=== PATIENT | female | born 1970 | race Caucasian/White ===

== ENCOUNTER 2016-12-01 12:26 | Emergency (ER) | payer BC ==
[2016-12-01 13:02] LABS: Hematocrit 37.6 % (37.0-47.0); Hemoglobin 11.9 gm/dL (12.5-16.0); Mean Cell Volume 83.7 fl (78-100); Mean Corpuscular Hemoglobin 26.5 pg (27-31); Mean Corpuscular Hgb Conc 31.6 g/dl (32-36); Mean Platelet Volume 8.8 fl (6.0-9.5); Neutrophil # 2.3 K/mm3 (1.3-6.0); Neutrophil % 44.7 % (42-75.0); Platelet Count 317 K/mm3 (150-450); Red Blood Count 4.49 M/mm3 (4.2-5.4); Red Cell Distribution Width 19.2 % (11.5-14.0); White Blood Count 5.1 K/mm3 (4.0-10.5)
--- OUTSIDE RECORDS SUMMARY | 2016-12-01 13:05 | XMS REPORT | Continuity of Care Document ---
:1970 Author Organization [employer] Address [place] [address] Care Team Providers Name Role Phone Markus Whittaker Primary Care Provider [phone] Source Comments This disclosure is being made pursuant to the [employer] program and maynot contain all information available regarding this patient.[employer] Active Allergies and Adverse Reactions Allergen Noted Date Severity Reactions Comments Codeine 06/19/2016 Low Itching Percocet 06/19/2016 Medium Nausea And Vomiting Current Medications Be aware that medications may not be up to date as of this document. Alwaysverify current medications with the patient. Prescription Sig. Disp. Refills Start Date End Date Status clonazePAM (KLONOPIN) Take 0.5 tablets 06/17/2016 Active 0.5 MG tablet by mouth 2 (two) times daily as needed. acyclovir (ZOVIRAX) Take 1 tablet by 04/21/2016 Active 400 MG tablet mouth 2 (two) times daily. PREMPRO 0.3-1.5 MG per Take 1 tablet by 04/22/2016 Active tablet mouth nightly. gabapentin (NEURONTIN) Take 1 tablet by 05/07/2016 Active 600 MG tablet mouth 3 (three) times daily. hydrOXYzine pamoate Take 1 capsule by 05/21/2016 Active (VISTARIL) 25 MG mouth every 6 capsule (six) hours as needed. mirtazapine (REMERON) Take 1 tablet by 06/17/2016 Active 30 MG tablet mouth nightly. QUEtiapine Fumarate Take 3 tablets by 06/17/2016 Active (SEROQUEL) 200 MG mouth nightly. tablet OXcarbazepine Take 2 tablets by 120 tablet 2 06/19/2016 Active (TRILEPTAL) 150 MG mouth 2 (two) tablet times daily. Start 1 nightly x 7d, increase every 7days until 2 twice daily. diazepam (VALIUM) 5 MG Take 1 tablet by 2 tablet 0 06/19/2016 Active tablet mouth 120 (one hundred twenty) minutes pre-procedure for Anxiety. Ok to repeat x1 at the time of procedure. HYDROcodone-acetaminop Take 1 tablet by 30 tablet 0 07/25/2016 Active hen (NORCO) 5-325 MG mouth nightly as per tablet needed. lamoTRIgine (LAMICTAL) Take 1 tablet by 07/09/2016 Active 100 MG tablet mouth 2 (two) times daily. 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
--- NOTE | 2016-12-01 13:09 | ERNOTE ---
ER Female HPI Date of Service: 12/01/16 Stated Complaint: BLOOD CLOT IN LEG AND VAGINAL BLEEDING Time Seen by Provider: 12/01/16 12:43 Allergies/Adverse Reactions: Allergies codeine phosphate [From Tylenol-Codeine] Adverse Reaction (Unknown, Verified 12:39) Itching oxycodone HCl [From Percocet] Adverse Reaction (Unknown, Verified 12/01/16 12:39 ) Nausea Home Medications: HOME MEDICATIONS QUEtiapine FUMARATE [Seroquel] 100 mg PO BID 06/21/14 [Last Taken Unknown] QUEtiapine FUMARATE [Seroquel] 400 mg PO HS 06/21/14 [Last Taken Unknown] clonazePAM [Klonopin] 0.5 mg PO TID PRN 06/21/14 [Last Taken Unknown] Acyclovir [Zovirax] 400 mg PO BID 12/01/16 [Last Taken Unknown] Budesonide/Formoterol Fumarate [Symbicort 160-4.5 Mcg Inhaler] 2 puff IH BID [Last Taken Unknown] Ferrous Sulfate 325 mg PO DAILY 12/01/16 [Last Taken Unknown] Gabapentin [Neurontin] 300 mg PO TID 12/01/16 [Last Taken Unknown] HYDROcodone/ACETAMINOPHEN [[place] 5-325] 1 tab PO Q46H PRN 12/01/16 [Last Taken Unknown] Mirtazapine [Remeron] 30 mg PO DAILY 12/01/16 [Last Taken Unknown] Warfarin Sodium [Coumadin] 3 mg PO DAILY 12/01/16 [Last Taken Unknown] hydrOXYzine PAMOATE [Vistaril] 25 mg PO TID 12/01/16 [Last Taken Unknown] lamoTRIgine [Lamictal] 100 mg PO DAILY 12/01/16 [Last Taken Unknown] - History of Present Illness Narrative: Pt. comes in with c/o vaginal bleeding for three days. Pt. is postmenopausal for three years and has only had this happen once before when on xeralto. Pt. was switched from xarelto to coumadin a month ago due to another DVT being found in pt. leg. Pt. has a hx of mult DVTs but is not aware of any clotting dysfunction. Pt. denies any SOB, CP, NVD, dizziness but does state that her abdomen feels full and she has fatigue. Pt. went to Dr Wright's office who she attempted to establish care with but who stated that she felt pt. was too complicated to be managed by her and was sent her without a PCP currently. Review of Systems - Review of Systems Constitutional: Present: fatigue, malaise. Absent: fever, chills, weakness EYE: Present: no symptoms reported ENT: Present: no symptoms reported. Absent: nose pain, nose congestion, nasal drainage, sore throat Respiratory: Present: no symptoms reported. Absent: shortness of breath, cough , wheezing Cardiology: Present: no symptoms reported. Absent: chest pain, palpitations, edema Gastrointestinal/Abdominal: Present: abdominal pain - diffuse aching. Absent: nausea, vomiting, diarrhea Genitourinary: Present: discharge - blood. Absent: frequency, hematuria, decreased urinary output Musculoskeletal: Present: no symptoms reported. Absent: back pain, neck pain, joint pain Skin: Present: no symptoms reported Neurological: Present: no symptoms reported. Absent: headache, dizziness/light- headedness, numbness, tingling Endocrine: Present: no symptoms reported All Other Systems: All systems neg except as marked - Patient's Past Medical History Patient History - Medical: No pertinent hx Patient History - Cardiac/Respiratory: Deep Vein Thrombosis Patient History - Cancer: No Hx of Cancer Patient History - Surgical Procedures: Cholecystectomy, Tubal Ligation Patient History - Other: None - Social History Living Situations: home Psych History: No pertinent hx Physical Exam - Physical Exam General Appearance: Present: wd/wn, alert, no apparent distress Eye Exam: Normal inspection: bilateral, PERRL: bilateral, EOMI: bilateral Ears, Nose, Throat: Present: normal ENT inspection, normal pharynx Neck: Present: normal inspection, nontender. Absent: lymphadenopathy (R), lymphadenopathy (L) Respiratory: Present: no respiratory distress, normal breath sounds, no accessory muscle use, chest nontender, lungs clear Cardiovascular/Chest: Present: regular rate, rhythm, no murmur, normal peripheral pulses Gastrointestinal/Abdominal: Present: normal bowel sounds, nondistended, soft, no organomegaly, tenderness - diffuse Back Exam: Present: normal inspection, normal range of motion, no CVA tenderness , no vertebral tenderness Extremity Exam: Present: normal inspection, non-tender, normal range of motion, no edema Neurological Exam: Present: alert, oriented, normal mood/affect, no motor/ sensory deficits Skin Exam: Present: warm/dry, pallor Pelvic Exam: Present: active bleeding, cervical motion tendernes, tender adnexa , tender uterus ED Progress - Date and Time Seen: Date and Time: 12/01/16 14:36 Pt. with decreased bleeding at this time and non life threatening hemaglobin So feel comfortable having pt. go home and follow up as an outpt. with int. med. - Results and Orders Patient's Lab Results:: I have reviewed the patient's lab results. - Vital Signs Patient's Vital Signs:: I have reviewed the patient's vital signs. Vital Signs: Vital Signs 12/01/16 12/01/16 12:34 12:52 Temperature 36.3 C L 36.4 C L Pulse Rate 95 102 H Respiratory 12 14 Rate Blood Pressure 143/89 129/85 O2 Sat by Pulse 100 97 Oximetry - CT/Ultrasound CT/Ultrasound Narrative: US pelvic IMPRESSION: 1. Endometrial stripe measurement within normal limits. 2. No focal uterine mass. 3. Small simple appearing right ovarian cyst which is probably benign. Recommend follow-up in 6-12 months to document stability, or sooner if the patient has new symptoms attributable to the right ovary. 4. Otherwise unremarkable examination. - Progress/Reassessment Chief Complaint: Genitourinary Problem Progress:: Improved Departure Clinical Impression: Abnormal uterine bleeding (AUB) - Departure Disposition: Home self-care Condition: Good Instructions: Abnormal Uterine Bleeding, Ovarian Cyst, [id number], Postmenopausal Bleeding Additional Instructions: Please follow up with engineering professor office here for follow up by calling for appointment as soon as you are able. Will call you with appointment for primary provider. Referrals: Chris Velazquez DO [Staff Physician] -
[2016-12-01 13:13] LABS: Prothrombin Time (Patient) 13.5 Seconds (9.4-11.4)
[2016-12-01 13:17] LABS: INR 1.3 INR (0.90-1.10)
[2016-12-01 13:20] LABS: Urine Bilirubin Negative (NEGATIVE); Urine Ketone Negative (NEGATIVE); Urine Nitrite Negative (NEGATIVE); Urine Protein Negative (NEGATIVE); Urine Specific Gravity <=1.005 SP.GR. (1.005-1.010); Urine Urobilinogen Normal (NORMAL)
[2016-12-01 13:25] LABS: Albumin * 3.5 gm/dl (3.4-5.0); Anion Gap 14.4 mmol/L (6.8-13.8); BUN/Creatinine Ratio 10.1 (9.0-21.6); Bilirubin, Total 0.1 mg/dL (0.0-1.1); Ca. Corrected For Albumin 8.6 mg/dL (8.4-10.2); Calcium * 8.5 mg/dL (7.9-10.9); Carbon Dioxide 26.5 mmol/L (24-32.6); Potassium 3.9 mmol/L (3.4-4.6); Total Protein 6.6 gm/dL (6.2-8.2)
[2016-12-01 13:36] LABS: Urine Appearance Clear; Urine Bacteria None Seen; Urine Blood 10 /ul (NEGATIVE); Urine Color Colorless; Urine RBC None Seen /hpf (0-5); Urine WBC None Seen /hpf (0-5)
[2016-12-01 14:41] VITALS: BP 116/78
== END 2016-12-01 15:01 | disposition home or self-care (01) ==
LOC: ER 12:26
DX: N95.0 Postmenopausal bleeding (principal); I82.509 Chronic embolism and thrombosis of unspecified deep veins of unspecified lower extremity; Z79.01 Long term (current) use of anticoagulants

== ENCOUNTER 2017-06-03 06:51 | Day surgery (SDC) | payer BC ==
[~2017-06-03 06:51] MED LIST: RINGER'S SOLUTION,LACTATED 1,000 ML IV PRN; ceFAZolin SODIUM 1 GM in DEXTROSE 5 % IN WATER 100 ML IV PRN
[2017-06-03] MEDS ORDERED: RINGER'S SOLUTION,LACTATED 1,000 ML IV ONE ×2 (07:30→09:50)
[2017-06-03] MEDS ORDERED: LIDOCAINE HCL/EPINEPHRINE 50 ML VIAL IJ ONE ×2 (08:20)
[2017-06-03] MEDS ORDERED: ceFAZolin SODIUM 1 GM VIAL IV ONE (08:20)
--- NOTE | 2017-06-03 08:56 | OR ---
Operative Report - Dictated Report Narrative: DATE OF PROCEDURE: 06/03/2017 INDICATIONS: 47-year-old female with postmenopausal bleeding due to lifelong Coumadin use secondary to recurrent VTE. PREOPERATIVE DIAGNOSIS: Recurrent postmenopausal bleeding on Coumadin therapy POSTOPERATIVE DIAGNOSIS: Same, with possible adenomyosis PROCEDURE: Diagnostic hysteroscopy, NovaSure endometrial ablation SURGEON: Josie Velazquez D.O. COLOR CHECKER: None ANESTHESIA: IV sedation with paracervical block ESTIMATED BLOOD LOSS: Minimal URINE OUTPUT: Not recorded FLUID REPLACEMENT: 400 mL SPECIMEN(S): None FINDINGS: Uterus sounded to 8 cm. Dark 1-2 mm punctate dark hemorrhagic lesions noted at the center of the fundus and at the 10 and 2 o'clock position which appeared to be just below the endometrial surface. TECHNIQUE: Patient was taken to the operating room and placed in dorsal lithotomy position after adequate IV sedation and 1 g of Ancef given intravenously. The anterior lip of the cervix was grasped with a long Allis clamp and a paracervical block was given using 1% lidocaine with epinephrine. A 5 mm hysteroscope was inserted through the cervical canal into the uterine cavity with findings as noted above. The uterus was sounded to 8 cm with a cervical length measured at 4 cm. The NovaSure device was inserted into the uterine cavity with a cavity width measurement of 2.5 cm. After cavity assessment the NovaSure device was deployed with a total ablation time of 79 seconds. The hysteroscope was reinserted into the uterine cavity showing a thorough burn of the entire cavity. All instruments were removed from the cervix and vagina. Sponge, lap, instrument, and needle count were correct x 2. The patient was transferred to postanesthesia care unit in good condition. POSTOPERATIVE CONDITION: Good
[2017-06-03] MEDS ORDERED: IBUPROFEN 800 MG TABLET PO PRN (09:07)
[2017-06-03] MEDS ORDERED: MORPHINE SULFATE 2 MG/ML DISP.SYRIN IV PRN (09:07)
[2017-06-03] MEDS ORDERED: HYDROcodone/ACETAMINOPHEN 1 EACH TABLET PO PRN (09:08)
[2017-06-03 09:54] VITALS: BP 132/85
== END 2017-06-03 06:52 | disposition home or self-care (01) ==
LOC: AMB 06:51
PROVIDERS: ATTEND Obstetrics & Gynecology
PROC: 0U5B8ZZ Destruction of Endometrium, Via Natural or Artificial Opening Endoscopic (ICD-10-PCS; principal; 2017-06-03 08:00)
DX: N95.0 Postmenopausal bleeding (principal); E07.89 Other specified disorders of thyroid; Z79.01 Long term (current) use of anticoagulants; F17.200 Nicotine dependence, unspecified, uncomplicated; Z68.28 Body mass index [BMI] 28.0-28.9, adult; Z86.711 Personal history of pulmonary embolism; Z86.718 Personal history of other venous thrombosis and embolism

== ENCOUNTER 2017-07-20 13:39 | Emergency (ER) | payer BC ==
[2017-07-20] MEDS ORDERED: HYDROmorphone HCL 1 MG/ML DISP.SYRIN IM ONE (14:39)
--- NOTE | 2017-07-20 14:48 | ERNOTE ---
Lower Extremity HPI - Narrative Date of Service: 07/20/17 - General Lower Extremities Pain: knee: right - patient fel 2 days ago Time Seen by Provider: 07/20/17 14:11 Source: patient Exam Limitations: no limitations - Immun/Allergies/Home Medications Immunizations: IMMUNIZATION HX Immunizations Up to Date Yes History of Influenza Vaccine Yes Hx Pneumococcal Vaccination No Allergies/Adverse Reactions: Allergies Allergy/AdvReac Type Severity Reaction Status Date / Time adhesive tape AdvReac Mild RASH Verified 07/20/17 13:49 codeine phosphate AdvReac Mild Itching Verified 07/20/17 13:49 [From Tylenol-Codeine] oxycodone HCl [From Percocet] AdvReac Mild N/V Verified 07/20/17 13:49 Home Medications: HOME MEDICATIONS Acyclovir [Zovirax] 400 mg PO BID 12/01/16 [Last Taken Unknown] Gabapentin [Neurontin] 300 mg PO TID 12/01/16 [Last Taken Unknown] Fluticasone/Salmeterol [Advair 500-50 Diskus] 1 puff IH BID 02/09/17 [Last Taken Unknown] Warfarin Sodium [Coumadin] 4 mg PO DAILY 02/09/17 [Last Taken 05/31/17 18:00] Albuterol Sulfate [Proair Hfa] 1 puff IH BID 05/29/17 [Last Taken Unknown] QUEtiapine FUMARATE [Seroquel] 200 mg PO QAM 05/29/17 [Last Taken Unknown] QUEtiapine FUMARATE [Seroquel] 400 mg PO HS 05/29/17 [Last Taken Unknown] HYDROcodone/ACETAMINOPHEN [[place] 5-325 mg Tablet] 1 each PO Q4H #20 tablet [Last Taken Unknown] HYDROcodone/ACETAMINOPHEN [[place] 5-325] 1 tab PO Q4H PRN #40 tab 07/20/17 [Last Taken Unknown] - History of Present Illness Narrative: 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 Occurred: just prior to arrival Location of Incident: other - street Method of Injury: Reports: fell, direct blow Reason for Fall: Reports: slipped Loss of Consciousness: Reports: no loss of consciousness Modifying Factors - (Improves): Reports: cold therapy, rest Modifying Factors - (Worsens): Reports: movement Associated Symptoms: Reports: unable to bear weight Other Injuries: Reports: none Review of Systems - Narrative Narrative: unremarkable - Review of Systems Constitutional: Present: no symptoms reported EYE: Present: no symptoms reported ENT: Present: no symptoms reported Respiratory: Present: no symptoms reported Cardiology: Present: no symptoms reported Gastrointestinal/Abdominal: Present: no symptoms reported Genitourinary: Present: no symptoms reported Musculoskeletal: Present: See HPI, joint pain, other - pain right knee Skin: Present: no symptoms reported Neurological: Present: no symptoms reported Endocrine: Present: no symptoms reported Hematologic/Lymphatic: Present: no symptoms reported Psych: Present: no symptoms reported All Other Systems: All systems neg except as marked - Narrative Narrative: unremarkable - Patient's Past Medical History Patient History - Medical: No pertinent hx Patient History - Cardiac/Respiratory: Asthma, Deep Vein Thrombosis, Other Patient History - Cancer: No Hx of Cancer Patient History - Surgical Procedures: Cholecystectomy, Tubal Ligation, Other Patient History - Other: None LMP (females 10-50): Menopausal - Family History Family History:: no untoward family reactions to anesthesia, no familial bleeding tendencies, no family history of clotting disorders, no family history of premature - Family History Mother Family History - Medical: Anxiety, Arthritis Family History - Cardiac/Respiratory: Coronary Heart Disease Family History - Cancer: No pertinent family hx Father Family History - Medical: , Diabetes Type 1 Family History - Cardiac/Respiratory: CVA/Stroke, Myocardial Infarction Family History - Cancer: No pertinent family hx - Social History Living Situations: home Abuse History: No History of abuse Psych History: No pertinent hx Does anyone smoke in the home?: Yes Smoking Status: Current every day smoker Have you smoked in the past 12 months: Yes Do you dip or chew tobacco: No Patient requests Smoking Cessation Consult: No Initiate information on Smoking Cessation: No Alcohol Use: occasionally Drug Use: marijuana - Immunizations Immunizations Up to Date: Yes Hx Pneumococcal Vaccination: No History of Influenza Vaccine: Yes Physical Exam - Physical Exam General Appearance: Present: moderate distress Head Exam: Present: normal inspection, no evidence of injury Eye Exam: Normal inspection: bilateral, PERRL: bilateral, EOMI: bilateral Ears, Nose, Throat: Present: normal ENT inspection Neck: Present: normal inspection, nontender Respiratory: Present: no respiratory distress, normal breath sounds, no accessory muscle use, chest nontender, lungs clear Cardiovascular/Chest: Present: regular rate, rhythm, no murmur, normal peripheral pulses Gastrointestinal/Abdominal: Present: normal bowel sounds, nontender, nondistended, soft, no organomegaly Back Exam: Present: normal inspection, normal range of motion, no CVA tenderness , no vertebral tenderness Extremity Exam: Present: decreased range of motion, joint swelling, other - pain worse on medial aspect of right knee, no deformity noted DTR: N=norm/NB=norm/brisk/A=abs/DD=dull/dimin/HC=hyperactive: Bicep (R): Normal , Bicep (L): Normal, Tricep (R): Normal, Tricep (L): Normal, Knee (L): Normal, Ankle (R): Normal, Ankle (L): Normal Skin Exam: Present: normal color, warm/dry Lymphatic Exam: Present: no adenopathy ED Progress - Date and Time Seen: Date and Time: 07/20/17 14:45 unchanged - Vital Signs Patient's Vital Signs:: I have reviewed the patient's vital signs. Vital Signs: Vital Signs 07/20/17 13:45 Temperature 35.8 C L Pulse Rate 97 Respiratory 13 Rate Blood Pressure 146/77 O2 Sat by Pulse 100 Oximetry - X-Ray X-Ray #1 X-Ray: knee - no osseuas dewformity noted Interpretation: Interp. by me - Progress/Reassessment Chief Complaint: Lower Extremity Pain/ Injury Progress:: Improved - Transfer of Care Expected Disposition: Discharge Plan - Plan Plan: to be discharged Departure Clinical Impression: Knee injury - Departure Disposition: Home self-care Condition: Fair Instructions: Knee Pain, [id number], How to Use a Knee Brace Referrals: Dione Wright DO [Primary Care Provider] - Prescriptions: HYDROcodone/ACETAMINOPHEN [[place] 5-325] 1 tab PO Q4H PRN #40 tab PRN Reason: Pain
[2017-07-20] MEDS ORDERED: HYDROmorphone HCL 2 MG/ML VIAL ONE (14:58)
[2017-07-20 15:19] VITALS: BP 137/93
== END 2017-07-20 15:23 | disposition home or self-care (01) ==
LOC: ER 13:39
PROC: 2W3LX1Z Immobilization of Right Lower Extremity using Splint (ICD-10-PCS; principal; 2017-07-20)
DX: W01.0XXA Fall on same level from slipping, tripping and stumbling without subsequent striking against object, initial encounter; Z79.01 Long term (current) use of anticoagulants; Z86.718 Personal history of other venous thrombosis and embolism; F17.200 Nicotine dependence, unspecified, uncomplicated; S89.91XA Unspecified injury of right lower leg, initial encounter; Y92.410 Unspecified street and highway as the place of occurrence of the external cause; Y93.9 Activity, unspecified

== ENCOUNTER 2018-08-11 17:49 | Observation (INO) ==
[2018-08-11] MEDS ORDERED: NORMAL SALINE 1,000 ML IV ONE ×2 (18:08→19:27)
[2018-08-11] MEDS ORDERED: diphenhydrAMINE HCL 50 MG/ML VIAL IV ONE (18:09)
[2018-08-11] MEDS ORDERED: LORazepam 2 MG/ML DISP.SYRIN IV ONE ×2 (18:09→19:33)
[2018-08-11] MEDS ORDERED: PROCHLORPERAZINE EDISYLATE 5 MG/ML VIAL IV ONE (18:09)
[2018-08-11 18:28] LABS: Hematocrit 41.2 % (37.0-47.0); Mean Cell Volume 95.2 fl (78-100); Mean Corpuscular Hgb Conc 31.6 g/dl (32-36); Mean Platelet Volume 10.3 fl (8-12.5); Neutrophil # 5.8 K/mm3 (1.3-6.0); Neutrophil % 63.3 % (42-75.0); Platelet Count 261 K/mm3 (150-450); Red Blood Count 4.33 M/mm3 (4.2-5.4); Red Cell Distribution Width 14.9 % (11.5-14.0); White Blood Count 9.1 K/mm3 (4.0-10.5)
[2018-08-11 19:02] LABS: ALT 26 U/L (19-67); AST 17 U/L (0-48); Alkaline Phosphatase * 74 U/L (50-170); Anion Gap 17.8 mmol/L (6.8-13.8); BUN/Creatinine Ratio 19.2 (9.0-21.6); Bilirubin, Total 0.2 mg/dL (0.0-1.1); Blood Urea Nitrogen 15 mg/dL (3-23); Calcium * 9.3 mg/dL (7.9-10.9); Carbon Dioxide 24.2 mmol/L (24-32.6); Chloride 105 mmol/L (97-106); Glucose * 87 mg/dL (70-110); Lipase 67 U/L (73-393); Salicylate 5.3 mg/dL (2.8-20.0); Sodium 143 mmol/L (132-142); Total Protein 6.9 gm/dL (6.2-8.2); Troponin I Less than 0.017 ng/mL (0.00-0.10)
--- NOTE | 2018-08-11 19:20 | ERNOTE ---
Medical Problem HPI - Narrative Date of Service: 08/11/18 - General Chief Complaint: General Assessment Time Seen by Provider: 08/11/18 18:05 Source: patient Exam Limitations: no limitations - Immun/Allergies/Home Medications Immunizations: IMMUNIZATION HX Immunizations Up to Date Yes History of Influenza Vaccine No Hx Pneumococcal Vaccination No Allergies/Adverse Reactions: Allergies adhesive tape Adverse Reaction (Mild, Verified 08/11/18 18:00) RASH codeine phosphate [From Tylenol-Codeine] Adverse Reaction (Mild, Verified 08/11/18 18:00) Itching oxycodone HCl [From Percocet] Adverse Reaction (Mild, Verified 08/11/18 18:00) N/V Home Medications: HOME MEDICATIONS Acyclovir [Zovirax] 400 mg PO BID 12/01/16 [Last Taken Unknown] Gabapentin [Neurontin] 300 mg PO TID 12/01/16 [Last Taken Unknown] Fluticasone/Salmeterol [Advair 500-50 Diskus] 1 puff IH BID 02/09/17 [Last Taken Unknown] Warfarin Sodium [Coumadin] 4 mg PO DAILY 02/09/17 [Last Taken 05/31/17 18:00] Albuterol Sulfate [Proair Hfa] 1 puff IH BID 05/29/17 [Last Taken Unknown] QUEtiapine FUMARATE [Seroquel] 200 mg PO QAM 05/29/17 [Last Taken Unknown] QUEtiapine FUMARATE [Seroquel] 400 mg PO HS 05/29/17 [Last Taken Unknown] HYDROcodone/ACETAMINOPHEN [[place] 5-325 mg Tablet] 1 each PO Q4H #20 tablet 06/03/17 [Last Taken Unknown] HYDROcodone/ACETAMINOPHEN [[place] 5-325] 1 tab PO Q4H PRN #40 tab 07/20/17 [Last Taken Unknown] - History of Present History Narrative: patient presents to the ED for "alcohol withdrawal". She relates that she has been drinking hard liquor heavily daily. 1.5 pints of Fireball daily at a minimum. SHe tried to taper then stop but now at 48 hours she is having significant withdrawal symptoms. She had tremulousness, nausea, shakiness, headache, anxiety. She went through treatment 10 years ago and did not have this, had been sober for many years. no SI or HI. No CP or SOB. Timing: constant, getting worse Severity: severe Modifying Factors - (Improves): Present: other - nothing Modifying Factors - (Worsens): Present: other - nothing Review of Systems - Review of Systems Constitutional: Present: diaphoresis ENT: Absent: sore throat Respiratory: Absent: shortness of breath Cardiology: Absent: chest pain Gastrointestinal/Abdominal: Present: nausea, vomiting Skin: Absent: rash Neurological: Absent: weakness All Other Systems: All systems neg except as marked Medical History (Last Reviewed 08/11/18 @ 19:23 by Joel Sadler MD) History of asthma Hx of deep venous thrombosis Hx of pulmonary embolus Surgical History: Surgical History (Last Reviewed 08/11/18 @ 19:23 by Joel Sadler MD) Hx laparoscopic cholecystectomy Hx of prior ablation treatment Hx of tubal ligation Family History: Family History (Last Reviewed 08/11/18 @ 19:23 by Joel Sadler MD) Other No pertinent family history Social History: Preferred Language Persian Do you have any adventist or No cultural preference? Smoking Status Current every day smoker Abuse History No History of abuse Psych History No pertinent hx Alcohol Use heavy Drug Use none No Social History Section defined Physical Exam - Physical Exam General Appearance: Present: alert, other - anxious Head Exam: Present: normal inspection, no evidence of injury Eye Exam: Normal inspection: bilateral, PERRL: bilateral Ears, Nose, Throat: Present: normal ENT inspection Neck: Present: normal inspection Respiratory: Present: no respiratory distress, normal breath sounds, no accessory muscle use, lungs clear Cardiovascular/Chest: Present: regular rate, rhythm, normal peripheral pulses Gastrointestinal/Abdominal: Present: normal bowel sounds, nondistended, soft, other - mild epigastric tenderness Back Exam: Present: normal range of motion Extremity Exam: Present: normal inspection Neurological Exam: Present: alert, no motor/sensory deficits, 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 - Vital Signs Patient's Vital Signs:: I have reviewed the patient's vital signs. Vital Signs: Vital Signs 08/11/18 17:58 Temperature 36.2 C Pulse Rate 94 Respiratory Rate 17 Blood Pressure 118/40 O2 Sat by Pulse Oximetry 96 - EKG EKG #1 EKG: NSR EKG read: Interp. by me EKG Comments: NSR rate 78. Non-specific, no STEMI noted. - Progress/Reassessment Chief Complaint: General Assessment Progress Note-Subjective: 08/11/18 19:25 CIWA score 26. Patient treated with IV fluids and ativan. patient wishes treatment. 08/11/18 19:35 Given her CIWA score of over 20 she needs hospital observation and SCU observ ation. She is agreeable. D/W Dr Ragsdale who will admit. SHe is doing much better after the ativan but with her CIWA score as high as it was initially she will need observation. 08/11/18 19:37 UA is pending at time of admission. Departure Clinical Impression: Alcohol withdrawal - Departure Disposition: Still a patient Condition: Stable Referrals: Dione Wright, [Primary Care Provider] -
[2018-08-11 19:22] LABS: Urine Bilirubin 1 mg/dl (NEGATIVE); Urine Blood Negative /ul (NEGATIVE); Urine Ketone 15 mg/dL (NEGATIVE); Urine Nitrite Negative (NEGATIVE); Urine Protein Negative (NEGATIVE); Urine Specific Gravity >=1.030 SP.GR. (1.005-1.010); Urine Urobilinogen Normal (NORMAL)
[2018-08-11 19:34] LABS: Urine Appearance Clear (CLEAR); Urine Bacteria TRACE; Urine Color Yellow; Urine RBC 0-5 /hpf (0-5); Urine WBC 0-5 /hpf (0-5)
[2018-08-11 19:41] LABS: Cocaine Ur Negative (NEGATIVE); Urine Barbiturate Negative (NEGATIVE); Urine PCP Negative (NEGATIVE); Urine THC Negative (NEGATIVE)
[2018-08-11 19:42] LABS: Urine Benzodiazepines Positive (NEGATIVE); Urine Opiates Positive (NEGATIVE)
[2018-08-11] MEDS: NICOTINE 21 MG PATC TD SCH (19:54)
[2018-08-11] MEDS ORDERED: MULTIVIT INFUSN,ADULT 4,VIT K 10 ML, THIAMINE HCL 100 MG in DEXTROSE 5 % IN WATER 1,000 ML IV ONE ×3 (21:23)
[2018-08-11] MEDS ORDERED: FLUTICASONE PROPION/SALMETEROL 14 PUFF DISK.W.DEV IH PRN (21:31)
[2018-08-11] MEDS ORDERED: ALBUTEROL SULFATE 200 PUFF INHALER IH PRN (21:31)
--- NOTE | 2018-08-11 21:39 | HP ---
Chief Complaint - Chief Complaint Date of Service: 08/11/18 Time of Service: 21:38 Chief Complaint: Nausea, vomiting, anxiety History of Present Illness: 48-year-old female presented to the ER with 1 day of anxiety/shakiness associated with nausea and vomiting. Patient states she is withdrawing from alcohol as she is a chronic alcohol user and has drank roughly 1-1-1/2 pints of hard liquor daily for the last year. She states she has been trying to wean herself off the alcohol over the last few months and decided 48 hours ago that she would just stop. She states that she wants to stop drinking completely never wants to drink again. Labs in the ER are fairly benign, she is a mildly elevated potassium and sodium but otherwise normal CMP. CBC was unremarkable. Her toxicology screen showed her to be positive for opiates and benzos but negative for alcohol. Her EKG showed her to be in normal sinus rhythm. She was placed under observation due to her high CIWA score. She did receive 2 doses of lorazepam and a bag of normal saline in the ER. Medical History (Last Reviewed 08/11/18 @ 21:09 by Alyx Barrios RN) History of asthma Hx of deep venous thrombosis Hx of pulmonary embolus Surgical History: Surgical History (Last Reviewed 08/11/18 @ 21:09 by Alyx Barrios RN) Hx laparoscopic cholecystectomy Hx of prior ablation treatment Hx of tubal ligation Family History: Family History (Last Reviewed 08/11/18 @ 21:09 by Alyx Barrios RN) Other No pertinent family history Social History: Patient Lives/Resources Home Utilized Occupation [employer] in [place] Preferred Language Greenlandic Do you have any buddhist or No cultural preference? Smoking Status Current every day smoker Have you smoked in the past 12 Yes months Do you dip or chew tobacco No Abuse History No History of abuse Psych History No pertinent hx Alcohol Use heavy Drug Use none No Social History Section defined Review Of Systems (GEN) - Review of Systems Generalized/Overall Review: Present: Diaphoresis EENTM: Present: No Symptoms Reported Respiratory: Present: No Symptoms Reported. Absent: Shortness of Breath Cardiac: Present: No Symptoms Reported. Absent: Chest Pain, Palpitations, Syncope Abdominal: Present: Nausea, Vomiting, Abdominal Pain Genitourinary: Present: No Symptoms Reported Musculoskeletal: Present: No Symptoms Reported Neurological: Present: Anxiety Skin: Present: No Symptoms Reported Endocrine: Present: No Symptoms Reported Immunizations: IMMUNIZATION HX Immunizations Up to Date Yes History of Influenza Vaccine No Hx Pneumococcal Vaccination No Allergies/Adverse Reactions: Allergies Allergy/AdvReac Type Severity Reaction Status Date / Time adhesive tape AdvReac Mild RASH Verified 08/11/18 18:00 codeine phosphate AdvReac Mild Itching Verified 08/11/18 18:00 [From Tylenol-Codeine] oxycodone HCl [From Percocet] AdvReac Mild N/V Verified 08/11/18 18:00 Home Medications: HOME MEDICATIONS Acyclovir [Zovirax] 400 mg PO BID PRN 12/01/16 [Last Taken Unknown] Fluticasone/Salmeterol [Advair 500-50 Diskus] 1 puff IH BID PRN 02/09/17 [Last Taken Unknown] Albuterol Sulfate [Proair Hfa] 1 puff IH BID PRN 05/29/17 [Last Taken Unknown] QUEtiapine FUMARATE [Seroquel] 200 mg PO QAM 05/29/17 [Last Taken Unknown] QUEtiapine FUMARATE [Seroquel] 400 mg PO HS 05/29/17 [Last Taken Unknown] HYDROcodone/ACETAMINOPHEN [[place] 5-325] 1 tab PO Q4H PRN #40 tab 07/20/17 [Last Taken Unknown] Omeprazole 20 mg PO HS 08/11/18 [Last Taken Unknown] Exam - Exam Vital Signs: Vital Signs - Last Taken Temp 36.8 C 08/11/18 21:12 Pulse 85 08/11/18 21:12 Resp 12 08/11/18 21:12 BP 131/44 08/11/18 21:12 Pulse Ox 98 08/11/18 21:12 Constitutional: Present: Alert, Oriented x3, Cooperative, Other - Pleasant, Looks Older than stated age Respiratory: Present: lungs clear, normal breath sounds, no respiratory distress Cardiovascular/Chest: Present: normal peripheral pulses, regular rate, rhythm Abdomen: Present: Normal bowel sounds, soft, nontender Neurologic: Present: shake feeder II-XII nml as tested, no motor/sensory deficits, alert, oriented x 3. Absent: abnormal shake feeder II-XII, motor weakness Appearance: Present: disheveled Eye contact: Present: cooperative, good eye contact, normal speech Thoughts: Present: normal thought pattern Diagnostic Studies: Abnormal Lab Results 08/11/18 08/11/18 08/11/18 Range/Units 18:26 18:26 19:17 MCHC 31.6 L (32-36) g/dl RDW 14.9 H (11.5-14.0) % Immature Gran % (Auto) 0.90 H (0.001-0.429) % Immature Gran # (Auto) 0.08 H (0.000-0.0310) K/mm3 Eosinophils % 3.3 H (0.0-3.0) % Sodium 143 H (132-142) mmol/L Plasma Sodium 143 H (130-142) mmol/L Anion Gap 17.8 H (6.8-13.8) mmol/L Lipase 67 L (73-393) U/L Urine Bilirubin 1 H (NEGATIVE) mg/dl Ur Epithelial Cells 5-10 H (0-5) /hpf Urine Opiates Screen (NEGATIVE) Acetaminophen Less than 0.2 L (10.0-30.0) mcg/mL U Benzodiazepines Scrn (NEGATIVE) 08/11/18 Range/Units 19:17 MCHC (32-36) g/dl RDW (11.5-14.0) % Immature Gran % (Auto) (0.001-0.429) % Immature Gran # (Auto) (0.000-0.0310) K/mm3 Eosinophils % (0.0-3.0) % Sodium (132-142) mmol/L Plasma Sodium (130-142) mmol/L Anion Gap (6.8-13.8) mmol/L Lipase (73-393) U/L Urine Bilirubin (NEGATIVE) mg/dl Ur Epithelial Cells (0-5) /hpf Urine Opiates Screen Positive H (NEGATIVE) Acetaminophen (10.0-30.0) mcg/mL U Benzodiazepines Scrn Positive H (NEGATIVE) Laboratory Results WBC 9.1 K/mm3 (4.0-10.5) 08/11/18 18:26 RBC 4.33 M/mm3 (4.2-5.4) 08/11/18 18:26 Hgb 13.0 gm/dL (12.5-16.0) 08/11/18 18:26 Hct 41.2 % (37.0-47.0) 08/11/18 18:26 MCV 95.2 fl (78-100) 08/11/18 18: MCH 30.0 pg (27-31) 08/11/18 18: MCHC 31.6 g/dl (32-36) L 08/11/18 18: RDW 14.9 % (11.5-14.0) H 08/11/18 18: Plt Count 261 K/mm3 (150-450) 08/11/18 18: MPV 10.3 fl (8-12.5) 08/11/18 18: Immature Gran % (Auto) 0.90 % (0.001-0.429) H 08/11/18 18: Immature Gran # (Auto) 0.08 K/mm3 (0.000-0.0310) H 08/11/18 18: Neutrophils % 63.3 % (42-75.0) 08/11/18 18: Lymphocytes % 24.8 % (20-51) 08/11/18 18: Monocytes % 6.8 % (0.0-9) 08/11/18 18: Eosinophils % 3.3 % (0.0-3.0) H 08/11/18 18: Basophils % 0.9 % (0.0-1.0) 08/11/18 18: Nucleated RBC % 0.0 k/mm3 (0-1) 08/11/18 18: Neutrophils # 5.8 K/mm3 (1.3-6.0) 08/11/18 18: Lymphocytes # 2.26 k/mm3 (1.5-3.5) 08/11/18 18: Monocytes # 0.6 k/mm3 (0.0-1.0) 08/11/18 18: Eosinophils # 0.3 k/mm3 (0.0-0.7) 08/11/18: Absolute Basophils 0.1 k/mm3 (0.0-0.1) 08/11/18 18: Sodium 143 mmol/L (132-142) H 08/11/18 18: Plasma Sodium 143 mmol/L (130-142) H 08/11/18 18: Potassium 4.0 mmol/L (3.4-4.6) 08/11/18 18:26 Chloride 105 mmol/L (97-106) 08/11/18 18: Carbon Dioxide 24.2 mmol/L (24-32.6) 08/11/18 18: Anion Gap 17.8 mmol/L (6.8-13.8) H 08/11/18 18: BUN 15 mg/dL (3-23) 08/11/18 18: Creatinine 0.78 mg/dL (0.4-1.4) 08/11/18 18: Est GFR (Non-Af Amer) 83 mL/min (60-130) 08/11/18 18: BUN/Creatinine Ratio 19.2 (9.0-21.6) 08/11/18 18: Random Glucose 87 mg/dL (70-110) 08/11/18 18: Calcium 9.3 mg/dL (7.9-10.9) 08/11/18 18: Calcium Adj for Albumin 9.0 mg/dL (8.4-10.2) 08/11/18 18: Total Bilirubin 0.2 mg/dL (0.0-1.1) 08/11/18 18: AST 17 U/L (0-48) 08/11/18 18: ALT 26 U/L (19-67) 08/11/18 18: Alkaline Phosphatase 74 U/L (50-170) 08/11/18 18: Ammonia Less than 17.0 mcmol/L (11-35) 08/11/18 18: Troponin I Less than 0.017 ng/mL (0.00-0.10) 08/11/18 18: Total Protein 6.9 gm/dL (6.2-8.2) 08/11/18 18: Albumin 4.0 gm/dl (3.4-5.0) 08/11/18 18: Lipase 67 U/L (73-393) L 08/11/18 18: TSH 2.060 uIU/mL (0.358-3.74) 08/11/18 18: Serum HCG, Qual Negative (NEGATIVE) 08/11/18 18: Urine Color Yellow 08/11/18: Urine Appearance Clear (CLEAR) 08/11/18: Urine pH 6.0 pH (5.0-7.0) 08/11/18 19:17 Ur Specific [place] >=1.030 SP.GR. (1.005-1.010) 08/11/18 19:17 Urine Protein Negative mg/dL (NEGATIVE) 08/11/18 19:17 Urine Glucose (UA) Negative mg/dL (NEGATIVE) 08/11/18 19:17 Urine Ketones 15 mg/dL (NEGATIVE) 08/11/18 19:17 Urine Blood Negative /ul (NEGATIVE) 08/11/18 19:17 Urine Nitrate Negative (NEGATIVE) 08/11/18 19:17 Urine Bilirubin 1 mg/dl (NEGATIVE) H 08/11/18 19:17 Urine Ictotest Negative (NEGATIVE) 08/11/18 19:17 Urine Urobilinogen Normal EU/dl (NORMAL) 08/11/18 19:17 Ur Leukocyte Esterase Negative /ul (NEGATIVE) 08/11/18 19:17 Urine RBC 0-5 /hpf (0-5) 08/11/18 19:17 Urine WBC 0-5 /hpf (0-5) 08/11/18 19:17 Ur Epithelial Cells 5-10 /hpf (0-5) H 08/11/18 19:17 Urine Bacteria Trace (NONE) 08/11/18 19:17 Urine Culture Comments No culture indicated 08/11/18 19:17 Salicylates 5.3 mg/dL (2.8-20.0) 08/11/18 18:26 Urine Opiates Screen Positive (NEGATIVE) H 08/11/18 19:17 Acetaminophen Less than 0.2 mcg/mL (10.0-30.0) L 08/11/18 18:26 Barbiturate Screen Negative (NEGATIVE) 08/11/18 19:17 Ur Phencyclidine Scrn Negative (NEGATIVE) 08/11/18 19:17 Urine Amphetamine Negative (NEGATIVE) 08/11/18 19:17 U Benzodiazepines Scrn Positive (NEGATIVE) H 08/11/18 19:17 Urine Cocaine Screen Negative (NEGATIVE) 08/11/18 19:17 Urine Marijuana (THC) Negative (NEGATIVE) 08/11/18 19:17 Ethyl Alcohol Less than 3.0 mg/dL (0.0-10.0) 08/11/18 18:26 Assessment/Plan - Narrative Narrative: Patient placed in observation, continue IV fluids. Alcohol withdrawal assessment protocol ordered, Lorazepam to be given if appropriate CIWA scores obtained. Patient appears to be much better than she was in the ER, will continue to monitor. Will start patient on folic acid and thiamine in the morning. Likely home tomorrow if she continues to do well with roughly 5 days of longer acting benzodiazepine to be dose every 6 to 12 hours as needed. - Assessment/Plan (1) Alcohol withdrawal Problem: Acute (2) Alcoholic Problem: Chronic
[2018-08-11] MEDS: LORazepam 2 MG/ML DISP.SYRIN IV PRN (22:39)
[2018-08-12] MEDS: LORazepam 2 MG/ML DISP.SYRIN IV PRN ×4 (00:40→08:24)
[2018-08-12] MEDS ORDERED: ALBUTEROL SULFATE 2.5 MG/0.5 ML VIAL.NEB IH PRN (06:30)
[2018-08-12] MEDS ORDERED: ONDANSETRON HCL/PF 2 MG/ML VIAL IV PRN (08:13)
[2018-08-12] MEDS ORDERED: THIAMINE HCL 100 MG TABLET PO SCH (09:00)
[2018-08-12] MEDS ORDERED: FOLIC ACID 1 MG TABLET PO SCH (09:00)
[2018-08-12] MEDS: NICOTINE 21 MG PATC TD SCH (10:02)
--- NOTE | 2018-08-12 11:22 | DS ---
(1) Alcohol withdrawal Problem: Acute (2) Alcoholic Problem: Chronic Description of Stay: Patient presented to the ER last night with anxiety, tremors, nausea vomiting, diaphoresis. Patient had placed herself on alcohol detoxification 48 hours earlier and was starting to feel the symptoms of withdrawal. Labs within acceptable range, EKG showed normal sinus rhythm. She was placed in observation as she had an elevated CIWA score requiring Lorazepam to help calm her down. Overnight she was fairly anxious requiring a few doses of lorazepam but this morning her CIWA score was 5 and she was walking the halls asking to be discharged home. Other than some anxiety, headache, nausea, patient did fairly well with no acute event while here. Her vital signs were stable and she was afebrile upon discharge. I advised her to follow-up with her PCP in the next 3- 5 days for continuity of care and support through this process. Procedures Performed: none Results and Findings: Lab Pending Results 08/11/18 18:26: WBC 9.1, RBC 4.33, Hgb 13.0, Hct 41.2, MCV 95.2, MCH 30.0, MCHC 31.6 L, RDW 14.9 H, Plt Count 261, MPV 10.3, Immature Gran % (Auto) 0.90 H, Immature Gran # (Auto) 0.08 H, Neutrophils % 63.3, Lymphocytes % 24.8, Monocytes % 6.8, Eosinophils % 3.3 H, Basophils % 0.9, Nucleated RBC % 0.0, Neutrophils # 5.8, Lymphocytes # 2.26, Monocytes # 0.6, Eosinophils # 0.3, Absolute Basophils 0.1 08/11/18 18:26: Sodium 143 H, Plasma Sodium 143 H, Potassium 4.0, Chloride 105, Carbon Dioxide 24.2, Anion Gap 17.8 H, BUN 15, Creatinine 0.78, Est GFR (Non-Af Amer) 83, BUN/Creatinine Ratio 19.2, Random Glucose 87, Calcium 9.3, Calcium Adj for Albumin 9.0, Total Bilirubin 0.2, AST 17, ALT 26, Alkaline Phosphatase 74, Troponin I Less than 0.017, Total Protein 6.9, Albumin 4.0, Lipase 67 L, TSH 2.060, Salicylates 5.3, Acetaminophen Less than 0.2 L, Ethyl Alcohol Less than 3.0 08/11/18 18:26: Serum HCG, Qual Negative 08/11/18 18:28: Ammonia Less than 17.0 08/11/18 19:17: Urine Color Yellow, Urine Appearance Clear, Urine pH 6.0, Ur Specific [place] >=1.030, Urine Protein Negative, Urine Glucose (UA) Negative, Urine Ketones 15, Urine Blood Negative, Urine Nitrate Negative, Urine Bilirubin 1 H, Urine Ictotest Negative, Urine Urobilinogen Normal, Ur Leukocyte Esterase Negative, Urine RBC 0-5, Urine WBC 0-5, Ur Epithelial Cells 5-10 H, Urine Bacteria Trace, Urine Culture Comments No culture indicated 08/11/18 19:17: Urine Opiates Screen Positive H, Barbiturate Screen Negative, Ur Phencyclidine Scrn Negative, Urine Amphetamine Negative, U Benzodiazepines Scrn Positive H, Urine Cocaine Screen Negative, Urine Marijuana (THC) Negative Discharge Location: Home Disposition: Home self-care Condition: Stable Discharge Activity: Activity as tolerated Discharge Diet: General/regular food Referrals: Dione Wright, [Primary Care Provider] - One Week Prescriptions (Any new or edited meds): Oxazepam 30 mg PO . SEE RX INSTRUCTIO #10 cap Complete Home Medications List: Complete Home Medication List: Acyclovir [Zovirax] 400 mg PO BID PRN 12/01/16 Fluticasone/Salmeterol [Advair 500-50 Diskus] 1 puff IH BID PRN 02/09/17 Albuterol Sulfate [Proair Hfa] 1 puff IH BID PRN 05/29/17 QUEtiapine FUMARATE [Seroquel] 200 mg PO QAM 05/29/17 QUEtiapine FUMARATE [Seroquel] 400 mg PO HS 05/29/17 HYDROcodone/ACETAMINOPHEN [[place] 5-325] 1 tab PO Q4H PRN #40 tab 07/20/17 Omeprazole 20 mg PO HS 08/11/18 Oxazepam 30 mg PO . SEE RX INSTRUCTIO #10 cap 08/12/18
[2018-08-12 12:59] VITALS: BP 129/93
== END 2018-08-12 12:55 | disposition home or self-care (01) ==
LOC: ER 17:49 → MS 17:49
PROVIDERS: ADMIT Family Medicine; ATTEND Family Medicine
CPT/HCPCS: 36415; 80053; 80307; 80320; 80329; 81001; 82140; 83690; 84443; 84484; 84703; 85025; 90686; 93005; 96365; 96366; 96375; 99285; G0008; G0378; G0480; G0481